=== PATIENT | male | born 1985 | race Caucasian/White ===

== ENCOUNTER 2022-05-27 06:41 | Emergency (ER) | payer MEDICAID, OTHER ==
[~2022-05-27] VITALS: Ht 170.2 cm; Wt 77.0 kg
[~2022-05-27 06:41] MED LIST: NOCURR
[2022-05-27] MEDS ORDERED: PredniSONE 20 MG TABLET PO ONE (07:15)
[2022-05-27] MEDS ORDERED: IPRATROPIUM BROMIDE 0.5 MG/2.5 ML NEB SOLUTION NEB ONE (07:15)
[2022-05-27] MEDS ORDERED: ALBUTEROL SULFATE 2.5 MG/0.5 ML NEB SOLUTION NEB ONE (07:15)
[2022-05-27 07:17] LABS: COVID AG,FIA SOURCE NASOPHARYNGEAL
[2022-05-27 08:00] LABS: INFLUENZA TYPE A NEGATIVE FOR TYPE A (NEGATIVE); INFLUENZA TYPE B NEGATIVE FOR TYPE B (NEGATIVE)
[2022-05-27] MEDS ORDERED: AZITHROMYCIN 500 MG TABLET PO ONE (08:00)
[2022-05-27] MEDS ORDERED: PRED-554 PO (08:01)
[2022-05-27] MEDS ORDERED: AZIT-84 PO (08:01)
[2022-05-27 08:06] VITALS: BP 117/74
== END 2022-05-27 08:09 | disposition home or self-care (01) ==
LOC: EMS 06:44
DX: J45.909 Unspecified asthma, uncomplicated (principal); J18.9 Pneumonia, unspecified organism; F17.210 Nicotine dependence, cigarettes, uncomplicated; F12.90 Cannabis use, unspecified, uncomplicated; Z90.49 Acquired absence of other specified parts of digestive tract; Z20.822 Contact with and (suspected) exposure to COVID-19
CPT/HCPCS: 99284; 71045; 87426; 87804; 94640; J7512; Q9967; J7613

== ENCOUNTER 2022-08-07 09:47 | Emergency (ER) | payer SELFPAY ==
[~2022-08-07] VITALS: Ht 170.2 cm; Wt 74.1 kg
[~2022-08-07 09:47] MED LIST changes: +AZIT-103 PO; +PRED-554 PO
[2022-08-07] MEDS ORDERED: ALBU8HFA IH (10:04)
[2022-08-07] MEDS ORDERED: DOXY50 PO (11:40)
[2022-08-07] MEDS ORDERED: DIPH50 PO (11:40)
[2022-08-07 12:05] VITALS: BP 125/74
== END 2022-08-07 13:06 | disposition home or self-care (01) ==
LOC: EMS 09:47
DX: S80.261A Insect bite (nonvenomous), right knee, initial encounter (principal); B35.4 Tinea corporis; J45.909 Unspecified asthma, uncomplicated; F17.210 Nicotine dependence, cigarettes, uncomplicated; Z90.49 Acquired absence of other specified parts of digestive tract; W57.XXXA Bitten or stung by nonvenomous insect and other nonvenomous arthropods, initial encounter; Y93.89 Activity, other specified; Y92.89 Other specified places as the place of occurrence of the external cause; Y99.8 Other external cause status
CPT/HCPCS: 99283; Z7502